=== PATIENT | male | born 1935 | race Caucasian/White ===

== ENCOUNTER 2020-10-29 20:51 | Outpatient (CLI) | payer MEDICARE | END 2020-10-29 20:52 | disposition critical access hospital (66) | LOC: EMS 20:51 | DX: R55 Syncope and collapse (principal); R42 Dizziness and giddiness; R11.2 Nausea with vomiting, unspecified | CPT/HCPCS: A0425; A0427 ==

== ENCOUNTER 2020-10-29 21:25 | Emergency (ER) | payer MEDICARE ==
[2020-10-29 22:42] LABS: BASOPHILS % (AUTO) 0.3 %; EOSINOPHILS # (AUTO) 0.2 10^3/uL (0.0-0.7); EOSINOPHILS % (AUTO) 1.6 %; HCT - HEMATOCRIT 43.8 % (42.0-52.0); LYMPHOCYTES # (AUTO) 1.6 10^3/uL (1.5-3.5); LYMPHOCYTES % (AUTO) 13.7 %; MEAN CORPUSCULAR HEMOGLOBIN 32.4 pg (27.0-31.0); MEAN CORPUSCULAR HGB CONC 34.2 g/dL (32.0-36.0); MEAN CORPUSCULAR VOLUME 94.6 fL (80.0-94.0); MEAN PLATELET VOLUME 9.3 fL (7.4-11.4); MONOCYTES # (AUTO) 1.1 10^3/uL (0.0-1.0); MONOCYTES % (AUTO) 9.2 %; NEUTROPHILS # (AUTO) 8.5 10^3/uL (1.5-6.6); NEUTROPHILS % (AUTO) 74.5 %; PLT - PLATELET COUNT 206 10^3/uL (130-450); RED BLOOD COUNT 4.63 10^6/uL (4.70-6.10); RED CELL DISTRIBUTION WIDTH 12.6 % (12.0-15.0); WHITE BLOOD COUNT 11.5 x10^3/uL (4.8-10.8)
[2020-10-29 22:58] LABS: ALBUMIN 3.7 g/dL (3.2-5.5); ALBUMIN/GLOBULIN RATIO 1.2 (1.0-2.2); BILIRUBIN,TOTAL 1.1 mg/dL (0.2-1.0); CALCIUM 8.8 mg/dL (8.5-10.3); TOTAL PROTEIN 6.7 g/dL (6.7-8.2)
[2020-10-29 23:51] LABS: ALBUMIN/GLOBULIN RATIO 1.4 (1.0-2.2); BILIRUBIN,TOTAL 1.1 mg/dL (0.2-1.0); CALCIUM 8.9 mg/dL (8.5-10.3); TOTAL PROTEIN 6.9 g/dL (6.7-8.2)
--- NOTE | 2020-10-30 00:07 | ED Physician Documentation ---
History of Present Illness - Stated complaint Stated Complaint: SYNCOPAL - Chief complaint Chief Complaint: Neuro - Additonal information Additional information: The patient presents to the emergency department after having had a syncopal ev ent. The patient reports that he was visiting with family and became lightheaded. He apparently collapsed. He was out briefly and his grandson helped him stand up. However, he then collapsed again he is not sure how long he was out for the second time. He had no incontinence for stool or urine. Shortly thereafter, he did become nauseated and vomited once bringing up an emesis that was nonbloody without coffee-ground appearance. He had no preceding chest pain or palpitations. He did not have a headache. He had eaten dinner and had had 1 can of beer. His past history is significant for CHF and hypertension and he is on losartan and hydrochlorothiazide. He also takes aspirin each dayHe has never had a syncopal event in the past. Review of Systems Constitutional: denies: Fever, Chills, Myalgias, Fatigue Eyes: denies: Loss of vision, Decreased vision, Photophobia Ears: reports: Loss of hearing. denies: Ear pain, Tinnitus/ringing Cardiac: denies: Chest pain / pressure, Palpitations, Pedal edema, Calf pain Respiratory: denies: Dyspnea, Cough GI: reports: Nausea, Vomiting. denies: Abdominal Pain, Constipation, Diarrhea, Hematemesis : denies: Dysuria Neurologic: reports: Syncope, LOC. denies: Difficulty speaking, Confused, Altered mental status PD PAST MEDICAL HISTORY - Past Medical History Past Medical History: Yes Cardiovascular: Congestive heart failure, Hypertension, High cholesterol Respiratory: None Neuro: None Endocrine/Autoimmune: None GI: None : None Psych: None Musculoskeletal: None Derm: None - Present Medications Home Medications: Ambulatory Orders Medication Instructions Recorded Confirmed Atorvastatin [Lipitor] 20 mg PO DAILY 10/30/20 10/30/20 Losartan Potassium 25 mg PO DAILY 10/30/20 10/30/20 - Allergies Allergies/Adverse Reactions: Allergies Allergy/AdvReac Type Severity Reaction Status Date / Time No Known Drug Allergies Allergy Verified 10/30/20 01:26 - Social History Does the pt smoke?: No Smoking Status: Never smoker Does the pt drink ETOH?: Yes Does the pt have substance abuse?: No PD ED PE NORMAL - Vitals Vital signs reviewed: Yes - General General: Alert and oriented X 3, No acute distress - HEENT HEENT: Atraumatic, PERRL, EOMI, Pharynx benign - Neck Neck: Supple, no meningeal sign, No JVD, No bruit - Cardiac Cardiac: RRR, No murmur, No gallop, No rub, Strong equal pulses - Respiratory Respiratory: No respiratory distress - Abdomen Abdomen: Normal bowel sounds - Extremities Extremities: No deformity, Normal ROM s pain, No edema, No calf tenderness / cord - Neuro Neuro: Alert and oriented X 3, sales development executive 2-12 intact, No motor deficit, No sensory deficit, Normal speech Results - Vitals Vitals: Vital Signs - 24 hr 10/29/20 10/30/20 10/30/20 21:30 00:26 00:54 Temperature 96.4 C H Heart Rate 64 77 Heart Rate [ 77 Sitting] Heart Rate [ 89 Standing] Heart Rate [ 78 Supine] Respiratory 16 16 Rate Blood Pressure 126/85 H 171/101 H Blood Pressure 132/86 H [Sitting] Blood Pressure 110/88 H [Standing] Blood Pressure 148/86 H [Supine] O2 Saturation 95 96 10/30/20 10/30/20 10/30/20 01:08 01:30 02:00 Temperature Heart Rate 79 72 Heart Rate [ Sitting] Heart Rate [ Standing] Heart Rate [ Supine] Respiratory 14 16 16 Rate Blood Pressure 152/94 H 144/87 H Blood Pressure [Sitting] Blood Pressure [Standing] Blood Pressure [Supine] O2 Saturation 95 96 Oxygen O2 Source Room air - EKG (time done) No standard instances Rate: Rate (enter#) (66) Rhythm: NSR [place]: Anterior hemiblock Intervals: Prolonged FL, RBBB Compare to prior EKG: Old EKG unavailable - Labs Labs: Laboratory Tests 10/29/20 10/29/20 10/29/20 22:37 22:37 22:37 WBC 11.5 H RBC 4.63 L Hgb 15.0 Hct 43.8 MCV 94.6 H MCH 32.4 H MCHC 34.2 RDW 12.6 Plt Count 206 MPV 9.3 Neut # (Auto) 8.5 H Lymph # (Auto) 1.6 [place] # (Auto) 1.1 H Eos # (Auto) 0.2 Baso # (Auto) 0.0 Absolute Nucleated RBC 0.00 Nucleated RBC % 0.0 Sodium 131 L Potassium 4.0 Chloride 94 L Carbon Dioxide 28 Anion Gap 9.0 BUN 15 Creatinine 1.0 Estimated GFR (MDRD) 71 L Glucose 97 Calcium 8.8 Total Bilirubin 1.1 H AST 25 ALT 25 Alkaline Phosphatase 116 Troponin I High Sens 14.6 B-Natriuretic Peptide Total Protein 6.7 Albumin 3.7 Globulin 3.0 Albumin/Globulin Ratio 1.2 Lipase 29 TSH 10/29/20 10/29/20 10/29/20 22:37 23:34 23:34 WBC RBC Hgb Hct MCV MCH MCHC RDW Plt Count MPV Neut # (Auto) Lymph # (Auto) [place] # (Auto) Eos # (Auto) Baso # (Auto) Absolute Nucleated RBC Nucleated RBC % Sodium 131 L Potassium 4.0 Chloride 95 L Carbon Dioxide 22 Anion Gap 14.0 H BUN 15 Creatinine 1.0 Estimated GFR (MDRD) 71 L Glucose 95 Calcium 8.9 Total Bilirubin 1.1 H AST 30 ALT 25 Alkaline Phosphatase 117 Troponin I High Sens B-Natriuretic Peptide 268 H Total Protein 6.9 Albumin 4.0 Globulin 2.9 Albumin/Globulin Ratio 1.4 Lipase 28 TSH 5.70 H 10/30/20 00:15 WBC RBC Hgb Hct MCV MCH MCHC RDW Plt Count MPV Neut # (Auto) Lymph # (Auto) [place] # (Auto) Eos # (Auto) Baso # (Auto) Absolute Nucleated RBC Nucleated RBC % Sodium Potassium Chloride Carbon Dioxide Anion Gap BUN Creatinine Estimated GFR (MDRD) Glucose Calcium Total Bilirubin AST ALT Alkaline Phosphatase Troponin I High Sens 14.8 B-Natriuretic Peptide Total Protein Albumin Globulin Albumin/Globulin Ratio Lipase TSH - Rads (name of study) Noncontrast CT brain Radiology: Prelim report reviewed, EMP read contemporaneously (Noncontrast CT brain - No acute intracranial findings. Chronic parenchymal volume loss with white matter changes.) Chest x-ray Radiology: EMP read contemporaneously (No acute findings.) PD MEDICAL DECISION MAKING - ED course Complexity details: reviewed results, re-evaluated patient, considered differential, d/w patient ED course: Nursing staff reported that the patient had orthostatic changes when evaluated. Clinically, this is likely due to volume depletion in combination with the use of losartan and hydrochlorothiazide. He was treated with a 500 cc bolus of normal saline in the emergency department and reported feeling better. He was able to stand without lightheadedness or dizziness. I did encourage him to have close follow-up with his physicians at [facility] and likely adjustment of his antihypertensive and diuretic medications. He was encouraged to again seek emergent medical attention if any untoward symptoms or signs were to develop. Departure - Departure Disposition: 01 Home, Self Care Clinical Impression: Syncope Qualifiers: Syncope type: unspecified Qualified Code(s): R55 - Syncope and collapse Condition: Stable Instructions: ED Fainting Unkn Cause Discharge Date/Time: 10/30/20 02:34
[2020-10-30] MEDS ORDERED: SODIUM CHLORIDE 0.9% 500 ML IV ONE (01:18)
[2020-10-30 02:03] VITALS: BP 144/87
--- NOTE | 2020-10-30 07:20 | CT Report ---
PROCEDURE: HEAD WO INDICATIONS: syncope TECHNIQUE: Noncontrast 4.5 mm thick angled axial sections acquired from the foramen magnum to the vertex. For r adiation dose reduction, the following was used: automated exposure control, adjustment of mA and/or kV according to patient size. COMPARISON: None FINDINGS: Image quality: Excellent. CSF spaces: Basal cisterns are patent. No extra-axial fluid collections. The ventricles are symmet nettie in size and shape. Brain: No intracranial bleeds or masses. There is cerebral volume loss for age, with resultant vent ricular and sulcal prominence. There are periventricular and deep white matter chronic small vessel ischemic changes. There is intracranial internal carotid artery and vertebral artery atherosclerosis . Skull and face: Calvarium and visualized facial bones appear intact, without suspicious lesions. Sinuses: Visualized sinuses and mastoids are clear. IMPRESSION: No acute intracranial disease process. Reviewed by: Theresa Ledesma MD, PhD on 10/30/2020 7:18 AM PDT Approved by: Theresa Ledesma MD, PhD on 10/30/2020 7:18 AM PDT Station ID: [id number]
--- NOTE | 2020-10-30 08:04 | XRAY Report ---
PROCEDURE: Chest 1 View X-Ray INDICATIONS: Chest Pain TECHNIQUE: One view of the chest was acquired. COMPARISON: None FINDINGS: Surgical changes and devices: None. Lungs and pleura: No pleural effusions or pneumothorax. Lungs are clear. Small calcified granuloma in the right lung base. Mediastinum: Mediastinal contours appear normal. Heart size is normal. Bones and chest wall: No suspicious bony lesions. Overlying soft tissues appear unremarkable. IMPRESSION: No acute cardiopulmonary disease process. Reviewed by: Theresa Ledesma MD, PhD on 10/30/2020 8:03 AM PDT Approved by: Theresa Ledesma MD, PhD on 10/30/2020 8:03 AM PDT Station ID: [id number]
== END 2020-10-30 02:34 | disposition home or self-care (01) ==
LOC: ED 21:25
DX: R55 Syncope and collapse (principal); I10 Essential (primary) hypertension; Z79.82 Long term (current) use of aspirin; I45.10 Unspecified right bundle-branch block
CPT/HCPCS: 36415; 80053; 83690; 83880; 84443; 84484; 85025; 93005; 96360; 99283

== ENCOUNTER 2020-10-30 21:44 | Outpatient (CLI) | payer MEDICARE | END 2020-10-30 21:45 | disposition critical access hospital (66) | LOC: EMS 21:44 | DX: R55 Syncope and collapse (principal) | CPT/HCPCS: A0425; A0427 ==

== ENCOUNTER 2020-10-30 22:21 | Emergency (ER) | payer MEDICARE ==
[2020-10-30] MEDS ORDERED: SODIUM CHLORIDE 0.9% 1,000 ML IV STA (23:04)
[2020-10-30 23:16] LABS: BASOPHILS % (AUTO) 0.1 %; EOSINOPHILS # (AUTO) 0.1 10^3/uL (0.0-0.7); EOSINOPHILS % (AUTO) 1.1 %; HGB - HEMOGLOBIN 14.2 g/dL (14.0-18.0); LYMPHOCYTES # (AUTO) 1.4 10^3/uL (1.5-3.5); LYMPHOCYTES % (AUTO) 15.8 %; MEAN CORPUSCULAR HEMOGLOBIN 32.3 pg (27.0-31.0); MEAN CORPUSCULAR HGB CONC 33.8 g/dL (32.0-36.0); MEAN CORPUSCULAR VOLUME 95.5 fL (80.0-94.0); MEAN PLATELET VOLUME 9.2 fL (7.4-11.4); MONOCYTES # (AUTO) 1.1 10^3/uL (0.0-1.0); MONOCYTES % (AUTO) 12.4 %; NEUTROPHILS # (AUTO) 6.2 10^3/uL (1.5-6.6); PLT - PLATELET COUNT 202 10^3/uL (130-450); RED CELL DISTRIBUTION WIDTH 12.8 % (12.0-15.0); WHITE BLOOD COUNT 8.9 x10^3/uL (4.8-10.8)
[2020-10-30 23:27] LABS: ALBUMIN 3.8 g/dL (3.2-5.5); ALBUMIN/GLOBULIN RATIO 1.5 (1.0-2.2); BILIRUBIN,TOTAL 1.2 mg/dL (0.2-1.0); CALCIUM 8.6 mg/dL (8.5-10.3); CREATININE 1.3 mg/dL (0.6-1.2); POTASSIUM 3.7 mmol/L (3.5-5.0); TOTAL PROTEIN 6.3 g/dL (6.7-8.2)
--- NOTE | 2020-10-31 00:47 | ED Physician Documentation ---
History of Present Illness - Stated complaint Stated Complaint: SYNCOPE - Chief complaint Chief Complaint: Neuro - History obtained from History obtained from: Patient, EMS - Additonal information Additional information: Pt comes to the ED by EMS for syncopal episode. Pt reports that he was sitting down after eating a large meal, when his stomach began to feel unwell. He had a syncopal episode, but awakened shortly thereafter. He did not fall. Pt was just seen for a syncopal episode last night, as well, and was worked up extensively. It was felt the pt was too volume-depleted and vasodilated from his medications, and he was discharged. He states he has been on Losartan for some time, but that he has always been very sensitive to it, and has had to cut the dose down previously. Pt denies any chest pain or SOB, either before or after the syncope. He is feeling well now. He states he has fainted for unknown reasons in the past, but work-up was negative for this. Pt also reports a h/o RBBB and unsteadiness on his feet for the past year. Review of Systems Ten Systems: 10 systems reviewed and negative Constitutional: reports: Reviewed and negative Eyes: reports: Reviewed and negative Ears: reports: Reviewed and negative Nose: reports: Reviewed and negative Throat: reports: Reviewed and negative Cardiac: reports: Reviewed and negative Respiratory: reports: Reviewed and negative GI: reports: Reviewed and negative : reports: Reviewed and negative Skin: reports: Reviewed and negative Musculoskeletal: reports: Reviewed and negative Neurologic: reports: Syncope Psychiatric: reports: Reviewed and negative Endocrine: reports: Reviewed and negative Immunocompromised: reports: Reviewed and negative PD PAST MEDICAL HISTORY - Past Medical History Past Medical History: Yes Cardiovascular: Congestive heart failure, Hypertension, High cholesterol Respiratory: None Neuro: None Endocrine/Autoimmune: None GI: None : None Psych: None Musculoskeletal: None Derm: None - Present Medications Home Medications: Ambulatory Orders Medication Instructions Recorded Confirmed Atorvastatin [Lipitor] 20 mg PO DAILY 10/30/20 10/30/20 Losartan Potassium 25 mg PO DAILY 10/30/20 10/30/20 - Allergies Allergies/Adverse Reactions: Allergies Allergy/AdvReac Type Severity Reaction Status Date / Time No Known Drug Allergies Allergy Verified 10/30/20 01:26 - Social History Does the pt smoke?: No Smoking Status: Never smoker Does the pt drink ETOH?: Yes Does the pt have substance abuse?: No - Immunizations Immunizations are current?: Yes PD ED PE NORMAL - Vitals Vital signs reviewed: Yes - General General: Alert and oriented X 3, No acute distress, Well developed/nourished - HEENT HEENT: Atraumatic, PERRL, EOMI, Moist mucous membranes - Neck Neck: Supple, no meningeal sign - Cardiac Cardiac: RRR, No murmur, Strong equal pulses - Respiratory Respiratory: No respiratory distress, Clear bilaterally - Abdomen Abdomen: Soft, Non tender, Non distended - Derm Derm: Normal color, Warm and dry, No rash - Extremities Extremities: No deformity, No edema, No calf tenderness / cord - Neuro Neuro: Alert and oriented X 3, straddle truck operator 2-12 intact, No motor deficit, No sensory deficit, Normal speech - Psych Psych: Normal mood, Normal affect Results - Vitals Vitals: Vital Signs - 24 hr 10/30/20 10/31/20 10/31/20 22:26 00:28 00:58 Temperature 36.2 C L Heart Rate 71 90 Heart Rate [ 86 Sitting] Heart Rate [ 85 Standing] Heart Rate [ 87 Supine] Respiratory 18 17 Rate Blood Pressure 141/72 H 132/85 H Blood Pressure 133/86 H [Sitting] Blood Pressure 110/78 [Standing] Blood Pressure 135/78 H [Supine] O2 Saturation 98 97 10/31/20 10/31/20 10/31/20 01:37 03:00 04:19 Temperature Heart Rate 83 82 87 Heart Rate [ Sitting] Heart Rate [ Standing] Heart Rate [ Supine] Respiratory 17 14 14 Rate Blood Pressure 141/87 H 139/98 H 150/94 H Blood Pressure [Sitting] Blood Pressure [Standing] Blood Pressure [Supine] O2 Saturation 97 94 95 Oxygen O2 Source Room air - EKG (time done) 2222 Rate: Rate (enter#) (70) Rhythm: NSR [place]: Normal Intervals: RBBB QRS: Normal Ischemia: Normal ST segments. No: T wave inversion Compare to prior EKG: Unchanged from prior EKG Computer interpretation: Agree with computer - Labs Labs: Laboratory Tests 10/30/20 10/30/20 23:12 23:12 WBC 8.9 RBC 4.40 L Hgb 14.2 Hct 42.0 MCV 95.5 H MCH 32.3 H MCHC 33.8 RDW 12.8 Plt Count 202 MPV 9.2 Neut # (Auto) 6.2 Lymph # (Auto) 1.4 L [place] # (Auto) 1.1 H Eos # (Auto) 0.1 Baso # (Auto) 0.0 Absolute Nucleated RBC 0.00 Nucleated RBC % 0.0 Sodium 130 L Potassium 3.7 Chloride 93 L Carbon Dioxide 27 Anion Gap 10.0 BUN 20 Creatinine 1.3 H Estimated GFR (MDRD) 53 L Glucose 110 H Calcium 8.6 Total Bilirubin 1.2 H AST 22 ALT 21 Alkaline Phosphatase 111 Total Protein 6.3 L Albumin 3.8 Globulin 2.5 Albumin/Globulin Ratio 1.5 PD MEDICAL DECISION MAKING - ED course Complexity details: reviewed results, re-evaluated patient, considered differential, d/w patient ED course: I reviewed the pt's workup from last night, including head CT. The pt was given a 2-L bolus of NS, and was found to be feeling better, though he did have a large output of stool. He felt that his unsteadiness was at baseline. We have discussed the need to drink plenty of water. Pt also feels that he ate too much, both tonight and last night, and that this contributed. We have discussed that an event monitor might be helpful, although tonight's episode sounds more vasovagal. Pt understands the importance of follow-up with his doctor as soon as possible. Departure - Departure Disposition: 01 Home, Self Care Clinical Impression: Dehydration, Vaso-vagal reaction Syncope Qualifiers: Syncope type: vasovagal syncope Qualified Code(s): R55 - Syncope and collapse Condition: Stable Instructions: ED Dehydration, ED Syncope Vasovagal Comments: Labs still look good today. You did have a head CT yesterday along with the many other tests that were done, and so this was not repeated today. You are feeling better after receiving 2 bags of IV fluid. Most likely, you have some degree of chronic dehydration, in part due to the water pill you are on. Some times digestive system upset can also trigger a reaction called a vasovagal episode, which can cause your blood pressure and heart rate to drop suddenly. This can also be a cause of the fainting., Especially since you had an upset stomach just before fainting and then had a large output of diarrhea afterward. It is important that you call your doctor's office to schedule the soonest next appointment to follow-up on your fainting episodes. You should talk to your doctor about potentially wearing an event monitor to see if there are any abnormal rhythms of your heart, should you faint again. Please be sure to drink 8 to 10 cups of water each day to stay hydrated. Discharge Date/Time: 10/31/20 04:52
[2020-10-31] MEDS ORDERED: SODIUM CHLORIDE 0.9% 1,000 ML IV STA (01:00)
[2020-10-31 04:20] VITALS: BP 150/94
== END 2020-10-31 04:52 | disposition home or self-care (01) ==
LOC: ED 22:21
DX: E86.0 Dehydration (principal); R55 Syncope and collapse; I11.0 Hypertensive heart disease with heart failure; I50.9 Heart failure, unspecified; I45.10 Unspecified right bundle-branch block
CPT/HCPCS: 36415; 80053; 83690; 83880; 84443; 84484; 85025; 93005; 96360; 96361; 99283

== ENCOUNTER 2020-11-05 16:09 | Outpatient (CLI) | payer MEDICARE | END 2020-11-05 16:10 | disposition critical access hospital (66) | LOC: EMS 16:09 | DX: R10.9 Unspecified abdominal pain (principal); R30.9 Painful micturition, unspecified | CPT/HCPCS: A0425; A0429 ==

== ENCOUNTER 2020-11-05 16:47 | Emergency (ER) | payer MEDICARE ==
[2020-11-05 17:27] LABS: BILIRUBIN,URINE NEGATIVE (NEGATIVE); GLUCOSE, URINE (UA) NEGATIVE (NEGATIVE); KETONES,URINE (UA) NEGATIVE (NEGATIVE); LEUKOCYTE ESTERASE, URINE LARGE (NEGATIVE); NITRITE,URINE POSITIVE (NEGATIVE); OCCULT BLOOD,URINE TRACE-INTA (NEGATIVE); PROTEIN,URINE NEGATIVE (NEGATIVE); UROBILINOGEN,URINE 0.2 (NORMAL) E.U./dL (NORMAL)
[2020-11-05 17:30] LABS: CLARITY,URINE SL. CLOUDY (CLEAR)
[2020-11-05 17:32] LABS: AMORPHOUS SEDIMENT,UR Few /LPF; BACTERIA,URINE Few /HPF (None Seen); MUCUS,URINE Few Strands; RBC,URINE 0-5 /HPF (0-5); SQUAMOUS EPITHELIAL CELL,UR FEW Squamous (<= Few); WBC,URINE >25 /HPF (0-3)
[2020-11-05] MEDS ORDERED: cefTRIAXone 1 GM VIAL IM STA (17:39)
[2020-11-05] MEDS ORDERED: LIDOCAINE 1% 2 ML VIAL MC ONE (17:39)
--- NOTE | 2020-11-05 18:04 | ED Physician Documentation ---
History of Present Illness - Stated complaint Stated Complaint: MALE - Chief complaint Chief Complaint: Abd Pain - History obtained from History obtained from: Patient - History of Present Illness Timing: Today Pain level max: 0 Pain level now: 0 - Additonal information Additional information: Patient is an 85-year-old male who states that he has had difficulty urinating today, only dribbling and feels like he cannot empty his bladder. No fevers. No chills. No nausea or vomiting. Nothing makes it better or worse Patient has never had similar symptoms previously. Review of Systems Ten Systems: 10 systems reviewed and negative Constitutional: denies: Fever, Chills Respiratory: denies: Cough GI: denies: Vomiting Skin: denies: Rash Musculoskeletal: denies: Neck pain, Back pain Neurologic: denies: Headache PD PAST MEDICAL HISTORY - Past Medical History Cardiovascular: Congestive heart failure, Hypertension, High cholesterol Respiratory: None Neuro: None Endocrine/Autoimmune: None GI: None : None Psych: None Musculoskeletal: None Derm: None - Present Medications Home Medications: Ambulatory Orders Medication Instructions Recorded Confirmed Atorvastatin [Lipitor] 20 mg PO DAILY 10/30/20 10/30/20 Losartan Potassium 25 mg PO DAILY 10/30/20 10/30/20 Cefdinir 300 mg PO BID #20 cap 11/05/20 - Allergies Allergies/Adverse Reactions: Allergies Allergy/AdvReac Type Severity Reaction Status Date / Time No Known Drug Allergies Allergy Verified 11/05/20 16:53 - Social History Does the pt smoke?: No Smoking Status: Never smoker Does the pt drink ETOH?: Yes Does the pt have substance abuse?: No - Immunizations Immunizations are current?: Yes PD ED PE NORMAL - Vitals Vital signs reviewed: Yes - General General: Alert and oriented X 3, No acute distress, Well developed/nourished - HEENT HEENT: Moist mucous membranes - Neck Neck: Supple, no meningeal sign - Cardiac Cardiac: RRR - Respiratory Respiratory: No respiratory distress, Clear bilaterally - Abdomen Abdomen: Soft, Non tender, Non distended - Derm Derm: Warm and dry - Neuro Neuro: Alert and oriented X 3 - Psych Psych: Normal mood, Normal affect Results - Vitals Vitals: Vital Signs - 24 hr 11/05/20 11/05/20 16:54 18:12 Temperature 36.3 C L Heart Rate 70 71 Respiratory 16 19 Rate Blood Pressure 146/97 H 135/88 H O2 Saturation 95 98 Oxygen O2 Source Room air - Labs Labs: Laboratory Tests 11/05/20 17:14 Urine Color YELLOW Urine Clarity SL. CLOUDY Urine pH 7.0 Ur Specific [place] 1.015 Urine Protein NEGATIVE Urine Glucose (UA) NEGATIVE Urine Ketones NEGATIVE Urine Occult Blood TRACE-INTA Urine Nitrite POSITIVE H Urine Bilirubin NEGATIVE Urine Urobilinogen 0.2 (NORMAL) Ur Leukocyte Esterase LARGE H Urine RBC 0-5 Urine WBC >25 H Ur Squamous Epith Cells FEW Squamous Amorphous Sediment Few Urine Bacteria Few Urine Mucus Few Strands Ur Microscopic Review INDICATED Urine Culture Comments INDICATED PD MEDICAL DECISION MAKING - ED course Complexity details: reviewed results, considered differential, d/w patient ED course: Patient with acute urinary retention, likely secondary to a UTI. Given Rocephin. Will place on antibiotics. Patient is well-appearing, nontoxic. Afebrile. We will leave the catheter in place until the antibiotics have had time to work. Patient counseled regarding signs and symptoms for which I believe and urgent re-evaluation would be necessary. Patient with good unders tanding of and agreement to plan and is comfortable going home at this time This document was made in part using voice recognition software. While efforts are made to proofread this document, sound alike and grammatical errors may occur. Departure - Departure Disposition: 01 Home, Self Care Clinical Impression: Acute urinary retention UTI (urinary tract infection) Qualifiers: Urinary tract infection type: acute cystitis Hematuria presence: without hematuria Qualified Code(s): N30.00 - Acute cystitis without hematuria Condition: Good Instructions: ED Catheter Care Shante, KIMBERLY UTI Cystitis Male Follow-Up: JIMMY MORGAN PA-C [Primary Care Provider] - Within 1 week Prescriptions: Cefdinir 300 mg PO BID #20 cap Comments: Your prescription was sent to [facility]. Please take all antibiotics until gone. Return if you worsen. You should follow-up with your doctor in 2 to 3 days for catheter removal and voiding trial. Discharge Date/Time: 11/05/20 18:22
[2020-11-05 18:13] VITALS: BP 135/88
== END 2020-11-05 18:22 | disposition home or self-care (01) ==
LOC: EDUNIT# → ED 16:47
DX: N30.00 Acute cystitis without hematuria (principal); R33.9 Retention of urine, unspecified; I10 Essential (primary) hypertension
CPT/HCPCS: 51702; 51798; 81001; 81003; 87086; 99283; 99284

== ENCOUNTER 2020-11-25 21:36 | Outpatient (CLI) | payer MEDICARE | END 2020-11-25 21:37 | disposition EMS.NT | LOC: EMS 21:36 | DX: R55 Syncope and collapse (principal) ==